=== PATIENT | male | born 1945 | race American Indian/Alaskan Native ===

== ENCOUNTER 2018-08-13 14:47 | Emergency (ER) | payer MEDICARE ==
--- NOTE | 2018-08-13 16:29 | ED PDOC ---
Arrival/HPI - General Historian: Patient - History of Present Illness Narrative History of Present Illness (Text): 08/13/18 16:24 73y M on Coumadin presents to ED of cutting his palm with a scissor. Pt has been unable to stop the bleed with pressure. Pt denies any inciting event, says it was an accident. Pt denies numbness, tingling, sob, loss of pulse/color. Pt follows up w/ Dr Patel, says his INR was in therapeutic range at last recent visit. Time/Duration: Prior to Arrival Symptom Onset: Sudden Symptom Course: Unchanged Context: Work <Tigre Faustin - Last Filed: 08/13/18 17:01> <Renae Slaughter - Last Filed: 08/13/18 21:10> - General Chief Complaint: Abnormal Skin Integrity Time Seen by Provider: 08/13/18 15:08 Past Medical History - Provider Review Nursing Documentation Reviewed: Yes <Tigre Faustin - Last Filed: 08/13/18 17:01> Family/Social History - Physician Review Nursing Documentation Reviewed: Yes Family/Social History: Unknown Family HX <Tigre Faustin - Last Filed: 08/13/18 17:01> Allergies/Home Meds <Tigre Faustin - Last Filed: 08/13/18 17:01> <Renae Slaughter - Last Filed: 08/13/18 21:10> Allergies/Adverse Reactions: Allergies No Known Allergies Allergy (Unverified 08/13/18 16:36) Review of Systems - Physician Review All systems were reviewed & negative as marked: Yes - Review of Systems Constitutional: Normal. absent: Fevers Eyes: absent: Vision Changes Respiratory: absent: SOB, Cough Cardiovascular: absent: Palpitations, Syncope Musculoskeletal: absent: Arthralgias, Neck Pain, Joint Swelling, Myalgias Skin: Laceration (L palm) <Tigre Faustin - Last Filed: 08/13/18 17:01> Physical Exam Vital Signs Temp Pulse Resp BP Pulse Ox 08/13/18 16:36 98.4 F 75 18 121/61 99 <Renae Slaughter - Last Filed: 08/13/18 21:10> Medical Decision Making ED Course and Treatment: 08/13/18 16:31 #L palm laceration -1.5cm - No 3 non absorbable, simple interrupted sutures: 1 total - Lido 1% with epinephrine 08/13/18 17:01 08/13/18 17:01 TDAP given <Tigre Faustin - Last Filed: 08/13/18 17:01> ED Course and Treatment: 08/13/18 21:09 Patient seen by resident and then evaluated by me. He presented with 0.5cm puncture wound to palm. Wound clean and sutured. Neurovascularly intact. Tetanus updated. - Medication Orders Current Medication Orders: Discontinued Medications Lidocaine/Epinephrine (Lidocaine 1%/Epinephrine 1:301619 30 Ml) 30 ml IJ ONCE ONE Stop: 08/13/18 16:38 Tetanus/Reduced Diphtheria/Acell Pertussis (Boostrix Vaccine Inj) 0.5 ml IM .ONCE ONE Stop: 08/13/18 16:59 <Renae Slaughter - Last Filed: 08/13/18 21:10> - PA / [employer] / Resident Statement / has reviewed & agrees with the documentation as recorded. / has examined the patient and agrees with the treatment plan. <Renae Slaughter - Last Filed: 08/13/18 21:10> Disposition/Present on Arrival - Present on Arrival Any Indicators Present on Arrival: No - Disposition Have Diagnosis and Disposition been Completed?: Yes Disposition Time: 17:02 Patient Plan: Discharge <Tigre Faustin - Last Filed: 08/13/18 17:01> - Disposition Have Diagnosis and Disposition been Completed?: Yes Patient Plan: Discharge <Renae Slaughter - Last Filed: 08/13/18 21:10> - Disposition Diagnosis: Laceration of palm Disposition: HOME/ ROUTINE Condition: GOOD Discharge Instructions (ExitCare): Wound Care, Laceration Repair With Stitches (DC) Additional Instructions: Follow-up for suture removal in 7-10 days. Return to Emergency department if condition worsens. Follow-up with PMD within 2 days [facility], thank you for letting us take care of you today. Your provider was Renae Slaughter MD and you were treated for LEFT HAND LAC. The emergency medical care you received today was directed at your acute symptoms. If you were prescribed any medication, please fill it and take as directed. It may take several days for your symptoms to resolve. Return to the Emergency Department if your symptoms worsen, do not improve, or if you have any other problems. Please contact your doctor or call one of the physicians/clinics you have been referred to that are listed on the Patient Visit Information form that is included in your discharge packet. Bring any paperwork you were given at discharge with you along with any medications you are taking to your follow up visit. Our treatment cannot replace ongoing medical care by a primary care provider outside of the emergency department. Thank you for allowing the [facility] team to be part of your care today. If you had an X-Ray or CT scan: A Radiologist will review the ED reading if any change in treatment is needed we will contact you. If you had a blood, urine, or wound culture: It will take several days for the results, if any change in treatment is needed we will contact you. If you had an STI test: It will take 48 hours for the results. Please call after 1 week if you have not heard back. Referrals: Marguerite Patel MD [Primary Care Provider] - Follow up with primary Forms: Jade Magnet ([place])
[2018-08-13 16:36] VITALS: BMI 23.9
[2018-08-13] MEDS ORDERED: Lidocaine 1%/Epinephrine 1:100000 30 ml vial IJ ONE ×2 (16:37)
[2018-08-13 16:40] VITALS: BP 121/61; PULSE 75; RESP 18; TEMP 98.4; O2SAT 99
[2018-08-13] MEDS ORDERED: TDAP Vaccine 0.5 mL Syr IM ONE (16:58)
== END 2018-08-13 17:27 | disposition home or self-care (01) ==
LOC: ED 14:47
DX: S61.412A Laceration without foreign body of left hand, initial encounter (principal); W27.2XXA Contact with scissors, initial encounter; Z23 Encounter for immunization